=== PATIENT | male | born 1945 | race Caucasian/White ===

== ENCOUNTER → 2023-01-25 | Outpatient (CLI) | payer OTHER, SELFPAY ==
[2023-01-25 13:54] LABS: Hemoglobin 16.1 g/dL (13.0-16.5); Mean Corp Hgb Conc 32.9 g/dL (32-36); Mean Corpuscular Volume 94.2 fL (80-94); Mean Platelet Vol. 10.8 fl (6.2-12.0); Platelet Count 223 K/mm3 (150-450); RBC Distribution Width CV 13.1 % (11.6-14.6); RBC Distribution Width SD 45.6 fl (35.1-43.9)
== END | disposition home or self-care (01) ==
LOC: LAB 12:22
PROVIDERS: Referring Provider Chiropractor; Visit Provider Chiropractor
DX: D47.2 Monoclonal gammopathy (principal)
CPT/HCPCS: 36415; 85027